=== PATIENT | female | born 1950 | race Caucasian/White ===

== ENCOUNTER 2018-03-13 17:25 | Inpatient (IN) | payer OTHER ==
[~2018-03-13] VITALS: Ht 165.1 cm; Wt 105.4 kg
[~2018-03-13 17:25] MED LIST: ATORVASTATIN CA10 MG PO; CEFDINIR300 MG PO; OXYBUTYNIN CHLOR5 M1 PO; VENTOLIN HFA18 GM IH; ZANTAC150 MG PO
[2018-03-13 18:31] LABS: BASOPHIL (%) 0.7 % (0-1); BASOPHIL COUNT 0.1 K/uL (0-0.1); EOSINOPHIL (%) 2.7 % (0-5); EOSINOPHIL COUNT 0.2 K/uL (0-0.3); HEMATOCRIT 42.4 % (36.0-46.0); HEMOGLOBIN 14.1 G/DL (11.9-15.5); IMMATURE GRANULOCYTE (%) 0.3 % (0.0-0.7); LYMPHOCYTE (%) 20.8 % (15-42); LYMPHOCYTE COUNT 1.4 K/uL (1.0-2.8); MCH 31.3 PG (29.0-34.0); MCHC 33.3 G/DL (30.0-36.0); MCV 94.2 FL (83-99); MONOCYTE (%) 13.1 % (3-12); MONOCYTE COUNT 0.9 K/uL (0-0.8); NEUTROPHIL (%) 62.4 % (45-76); NEUTROPHIL COUNT 4.2 K/uL (1.8-6.4); PLATELET COUNT 190 K/uL (156-360); RBC DIS.WIDTH-CV 14.7 % (11.8-14.6); RBC DIS.WIDTH-SD 50.6 % (39-53); WHITE BLOOD COUNT 6.7 K/uL (4.1-10.2)
[2018-03-13 18:37] LABS: CARBON DIOXIDE (BICARBONATE) 35.3 MEQ/L (20-31)
[2018-03-13 18:42] LABS: CHLORIDE 100 mEq/L (99-109); SODIUM 139 mEq/L (136-147)
[2018-03-13 18:44] LABS: GLUCOSE 109 mg/dL (70-99)
[2018-03-13 18:48] LABS: CREATININE 1.1 mg/dL (0.6-1.3); GFR ESTIMATE (CALCULATED) 52 mL/min/
[2018-03-13 18:49] LABS: UREA NITROGEN (BUN) 19 mg/dL (9-23)
[2018-03-13 18:55] LABS: TROP-I INTERPRETATION NEGATIVE; TROPONIN-I 0.03 ng/mL (0.0-0.30)
[2018-03-13 21:50] LABS: ALBUMIN 3.5 g/dL (3.2-4.8)
[2018-03-13 21:53] LABS: TOTAL PROTEIN 7.2 g/dL (6.4-8.3)
[2018-03-13 21:55] LABS: TOTAL BILIRUBIN 0.7 mg/dL (0.0-1.0)
[2018-03-13 21:56] LABS: ALKALINE PHOSPHATASE 82 IU/L (3-129)
[2018-03-13 21:58] LABS: AST (GOT) 28 IU/L (2-34); DIRECT BILIRUBIN 0.3 mg/dL (0.0-0.3)
[2018-03-13 21:59] LABS: ALT (GPT) 50 IU/L (3-49)
[2018-03-13 22:01] VITALS: BP 128/99
[2018-03-13 23:40] VITALS: BP 127/82
[2018-03-14 01:31] LABS: TROP-I INTERPRETATION NEGATIVE; TROPONIN-I 0.02 ng/mL (0.0-0.30)
[2018-03-14] MEDS ORDERED: PANTOPRAZOLE SO40 MG PO (01:31)
[2018-03-14] MEDS ORDERED: OXYBUTYNIN CHLOR5 M1 PO (01:33)
[2018-03-14] MEDS ORDERED: ATORVASTATIN CA40 MG PO (01:34)
[2018-03-14] MEDS ORDERED: LOPRESSOR25 MG PO (01:38)
[2018-03-14] MEDS ORDERED: LISINOPRIL-HCT1 EAC3 PO (01:43)
[2018-03-14] MEDS ORDERED: SYMBICORT60 INHALAT IH (01:45)
[2018-03-14] MEDS ORDERED: COMBIVENT RESPIM4 GM IH (01:48)
[2018-03-14] MEDS ORDERED: BREO ELLIPTA 21 EACH IH (01:49)
[2018-03-14 03:40] VITALS: BP 131/82
[2018-03-14 06:05] LABS: HEMATOCRIT 41.5 % (36.0-46.0); HEMOGLOBIN 13.7 G/DL (11.9-15.5); MCH 30.9 PG (29.0-34.0); MCV 93.5 FL (83-99); PLATELET COUNT 192 K/uL (156-360); RBC DIS.WIDTH-CV 14.6 % (11.8-14.6); RBC DIS.WIDTH-SD 50.1 % (39-53); RED BLOOD COUNT 4.44 M/uL (3.80-5.20); WHITE BLOOD COUNT 5.6 K/uL (4.1-10.2)
[2018-03-14 06:18] LABS: CHLORIDE 100 MEQ/L (99-109); CREATININE 0.9 MG/DL (0.6-1.3); GFR ESTIMATE (CALCULATED) > 59 mL/min/; POTASSIUM 4.2 MEQ/L (3.7-5.4); SODIUM 138 MEQ/L (136-147); TROP-I INTERPRETATION NEGATIVE; TROPONIN-I 0.01 ng/mL (0.0-0.30); UREA NITROGEN (BUN) 20 mg/dL (9-23)
[2018-03-14 06:19] LABS: GLUCOSE 205 mg/dL (70-99)
[2018-03-14 06:54] LABS: APPEARANCE CLOUDY ((CLEAR)); BILIRUBIN NEGATIVE; BLOOD MODERATE; COLOR YELLOW ((YELLOW)); GLUCOSE (STRIP) 50; KETONES NEGATIVE; LEUKOCYTES NEGATIVE; NITRITE NEGATIVE; PROTEIN (STRIP) 30; SPECIFIC GRAVITY 1.026 (1.000-1.030); UROBILINOGEN 0.2 MG/DL (0.2-1.0)
[2018-03-14 07:39] LABS: BACTERIA 4+ /HPF; EPITHELIAL CELLS 3+ /HPF; MUCUS NONE SEEN /LPF; RED BLOOD CELLS NONE SEEN /HPF (0-5); UCUL ADDED? YES
[2018-03-14 08:27] VITALS: BP 127/76
[2018-03-14 11:38] VITALS: BP 125/71
[2018-03-14 16:24] VITALS: BP 129/94
[2018-03-14 20:10] VITALS: BP 135/72
[2018-03-15 00:20] VITALS: BP 139/79
[2018-03-15 03:34] VITALS: BP 125/68
[2018-03-15 08:33] VITALS: BP 160/82
[2018-03-15 12:26] VITALS: BP 136/80
[2018-03-15 16:20] VITALS: BP 139/84
[2018-03-15 19:59] VITALS: BP 137/77
[2018-03-16] VITALS: BP 134/69
[2018-03-16 08:21] VITALS: BP 170/80
[2018-03-16] MEDS ORDERED: LEVOFLOXACIN750 MG PO (10:53)
[2018-03-16] MEDS ORDERED: STIOLTO RESPIMAT4 GM IH (10:54)
[2018-03-16] MEDS ORDERED: NICOTINE PATCH1 EAC2 TD (10:55)
[2018-03-16] MEDS ORDERED: PREDNISONE5 MG PO (10:55)
[2018-03-16 11:12] VITALS: BP 163/90
== END 2018-03-16 12:10 | disposition home or self-care (01) | DRG 193 ==
LOC: EME 17:25 → EDOF 20:23 → 2EAST 20:23 → ENRESERV 20:24 → CANRESERV 20:24 → ENRESERV 20:31 → 2EAST 21:48
PROVIDERS: Emergency Medicine; Hospitalist
DX: J18.9 Pneumonia, unspecified organism (principal); J44.1 Chronic obstructive pulmonary disease with (acute) exacerbation; J44.0 Chronic obstructive pulmonary disease with (acute) lower respiratory infection; J96.01 Acute respiratory failure with hypoxia; J98.11 Atelectasis; I10 Essential (primary) hypertension; I25.10 Atherosclerotic heart disease of native coronary artery without angina pectoris; K21.9 Gastro-esophageal reflux disease without esophagitis; F17.210 Nicotine dependence, cigarettes, uncomplicated; E66.01 Morbid (severe) obesity due to excess calories; Z68.38 Body mass index [BMI] 38.0-38.9, adult; Z86.010 Personal history of colon polyps; Z87.442 Personal history of urinary calculi; Z98.2 Presence of cerebrospinal fluid drainage device
CPT/HCPCS: 71046; 71275; 74177; 80048; 80076; 81003; 82803; 83880; 84484; 85025; 85027; 85379; 87040; 87070; 87086; 87205; 93005; 94640; 94760; 94799; 99281; 99285; J0295; J0456; J0696; J1650; J2920; J2930; J7030; J7050; J7512